=== PATIENT | male | born 1970 | race Caucasian/White ===

== ENCOUNTER 2019-04-11 04:05 | Observation (INO) ==
[2019-04-11] MEDS ORDERED: Ketorolac 15 MG/ML VIAL IVP ONE (04:45)
--- NOTE | 2019-04-11 04:51 | Emergency Department Note ---
Disposition Clinical Impression: Perineal abscess Disposition: Admitted As Inpatient Condition: Good Time of Disposition: 07:00 Male Urogenital HPI - General Chief complaint: ED Urogenital-Male Stated complaint: left testicle swelling Time Seen by Provider: 04/11/19 04:17 Source: patient Mode of arrival: private vehicle Limitations: no limitations Nursing Notes Reviewed: Yes Vital Signs Reviewed: Yes - History of Present Illness HPI Narrative: 48-year-old healthy male patient presents emergency department for evaluation of an abscess to the inguinal area. He states about a week ago he thought he had an infected hair, he attempted to pop it himself and drained and which is just turned into a large abscess. Patient is unsure if he is had fevers or not. He states he has felt hot and cold since about 1849 yesterday. No issues urinating, bowel movements. He states tenderness to the left inguinal area as well as bilateral testicles. They state there were at [facility] where they performed an ultrasound, gave 2 antibiotics, took blood and they wanted to transfer patient as they do not have urology services. Apparently, they tried to transfer patient to [facility], they did not want to go there in the room transfer to [place], patient did not want to go there as well and wanted to come here, at that point they left [facility] and drove to [place]. Patient states he ultrasound showed an abscess that was "going to need surgery", and is down into the left testicle coming over into the right testicle. Pt Subjective Complaint: testicle swelling (left) Onset (ago): day(s) Duration: constant Location: left testicle, left inguinal region Radiation: right testicle Severity: moderate, severe Severity scale (1-10): 8 Quality: other (Feels pressure, sharp) Improves with: none Worsens with: none other Reports: swelling, mass, fever (Unsure). Denies: discharge, rash, urinary retention, hematuria, dysuria, nausea/vomiting, incontinence - Related Data Sexually active: Yes Home Medications Medication Instructions Recorded Confirmed Acetaminophen [Tylenol] 1,000 mg PO DAILY PRN 04/11/19 04/11/19 Non-Formulary Medication 1 packet PO DAILY 04/11/19 04/11/19 Allergies Allergy/AdvReac Type Severity Reaction Status Date / Time aspirin Allergy "RED Verified 06/10/19 11:31 LIFTED HIVES, HEAD SWELLS" diphenhydramine Allergy Swelling Verified 04/11/19 11:31 [From Benadulil] of Lip/Tongue/Throat ibuprofen Allergy See Verified 04/11/19 11:31 Comments All systems ED: reviewed and negative except as stated. Review of Systems: As Per HPI Past Medical History - Past Medical History Attestation: Yes The following information was validated with the patient. Source: patient Medical history: Reports: no medical history Psychiatric history: Reports: no psych history - Social History Smoking Status: Current every day smoker Smokeless Tobacco Status: No Alcohol use: Reports: occasionally Drug use: Reports: none Physical Exam - General Limitations: no limitations General appearance: alert, in no apparent distress - Head Head exam: normal inspection - Eye Eye exam: Present: normal appearance - ENT ENT exam: mucous membranes moist - Male exam: Present: normal testicular lie, testicular tenderness (L>R), scrotal swelling (Left), other (left inguinal area with 2cmx 3cm indurated erythemic area without ulceration). Absent: circumcised, urethral discharge Scrotal exam: testicular tenderness: left, testicular swelling: left - Neurological Exam Neurological exam: Present: alert, oriented X3, normal gait - Psychiatric Psychiatric exam: Present: normal affect, normal mood - Skin Skin exam: Present: warm, dry, intact, normal color Course Course Narrative: Well-developed male distress. Respirations are easy and even. Patient is afebrile, non-tachycardic. Physical exam reveals an abscess to left renal area, there is ulceration, it is not draining. Examination was completed with frame opener in the room. Patient did sign a records release, we are currently attempting to get records from previous facility. Patient did have an ultrasound, he did receive antibiotics Vanc and Zosyn. Patient also had laboratory was there. We will initiate a saline lock and we will treat pain while pending records from previous facility. - Reevaluation(s) Reevaluation #1: Records received from [facility], ultrasound reveals there is some very cells and there is blood flow and bilateral testes however there is no mention of an abscess, fluid collection. Patient did receive the vancomycin and Zosyn. Labs from [facility] reveal a white blood cell count of 15.5, normal hemoglobin and hematocrit, metabolic panel was within normal limits with the exception of an elevated glucose at 298. UA without evidence of infection. Greater than 1000 glucose but no hematuria, leukocyte esterases, nitrites. The abscess does appear to be more in the inguinal area, we will obtain a CT to measure size. If it is not down into the testicle this will go through a general surgery, disposition continues to pend referral to test. Time: 06:25 Vital Signs Temperature 98.1 F 04/11/19 04:10 Pulse Rate 101 04/11/19 04:10 Respiratory Rate 16 04/11/19 04:10 Blood Pressure 174/98 04/11/19 04:10 O2 Sat by Pulse Oximetry 96 04/11/19 04:10 Temperature 97.5 F L 04/11/19 13:21 Pulse Rate 82 04/11/19 13:21 Respiratory Rate 15 04/11/19 13:21 Blood Pressure 121/73 04/11/19 13:21 O2 Sat by Pulse Oximetry 94 04/11/19 13:21 Oxygen Delivery Oxygen Delivery Room Air Urogenital-Male - Lab Data Result diagrams: 04/11/19 09:21 04/11/19 09:21 Lab Results 04/11/19 04/11/19 04/11/19 Range/Units 09:16 09:21 09:21 WBC 12.0 H (4.3-11.1) K/mcL RBC 4.82 (4.19-5.50) M/mcL Hgb 16.3 (12.9-16.9) g/dL Hct 45.9 (37.5-50.1) % MCV 95.2 (83.0-100.0) fL MCH 33.8 H (28.0-33.3) pg MCHC 35.5 (31.6-35.5) g/dL RDW 12.3 (11.5-14.5) % Plt Count 141 (140-400) K/mcL MPV 12.5 H (9.4-12.4) fL Immature Gran % 0.5 (0-4) % Seg Neutrophils % 60.7 % Lymphocytes % 27.3 % Monocytes % 7.7 % Eosinophils % 3.1 % Basophils % 0.7 % Neutrophils # 7.3 (1.6-8.9) K/mcL Lymphocytes # 3.3 (0.6-4.6) K/mcL Monocytes # 0.9 (0.0-1.3) K/mcL Eosinophils # 0.4 (0.0-0.6) K/mcL Basophils # 0.1 (0.0-0.2) K/mcL ESR 37 H (0-10) mm/hr PT (9.4-12.1) Seconds INR APTT (26.0-36.0) Seconds Sodium (136-145) mEq/L Potassium (3.5-5.1) mEq/L Chloride (98-107) mEq/L Carbon Dioxide (23-29) mEq/L BUN (6-20) mg/dL Creatinine (0.70-1.30) mg/dL Est GFR ( Amer) (> 60) Est GFR (Non-Af Amer) (> 60) BUN/Creatinine Ratio (6-26) Glucose (70-105) mg/dL Est Mean Plasma Glucose mg/dl Hemoglobin A1c ( - 5.6) % Calculated Osmolality (280-300) Calcium (8.6-10.3) mg/dL Magnesium (1.6-2.6) mg/dL C-Reactive Protein (Less than 10) mg/L Urine Color Yellow (Yellow) Urine Clarity Clear (Clear) Urine pH 6.0 (5.0-8.0) pH Units Ur Specific [place] 1.015 (1.010-1.025) Urine Protein Negative (Neg-Trace) mg/dL Urine Glucose (UA) 500 H (Normal) mg/dL Urine Ketones Negative (Negative) mg/dL Urine Blood Negative (Negative) Urine Nitrite Negative (Negative) Urine Bilirubin Negative (Negative) Urine Urobilinogen Normal (Normal) mg/dL Ur Leukocyte Esterase Negative (Negative) Ur Culture Indicated? NO (NO) 04/11/19 04/11/19 04/11/19 Range/Units 09:21 09:21 09:21 WBC (4.3-11.1) K/mcL RBC (4.19-5.50) M/mcL Hgb (12.9-16.9) g/dL Hct (37.5-50.1) % MCV (83.0-100.0) fL MCH (28.0-33.3) pg MCHC (31.6-35.5) g/dL RDW (11.5-14.5) % Plt Count (140-400) K/mcL MPV (9.4-12.4) fL Immature Gran % (0-4) % Seg Neutrophils % % Lymphocytes % % Monocytes % % Eosinophils % % Basophils % % Neutrophils # (1.6-8.9) K/mcL Lymphocytes # (0.6-4.6) K/mcL Monocytes # (0.0-1.3) K/mcL Eosinophils # (0.0-0.6) K/mcL Basophils # (0.0-0.2) K/mcL ESR (0-10) mm/hr PT 12.3 H (9.4-12.1) Seconds INR 1.1 APTT 34.9 (26.0-36.0) Seconds Sodium 135 L (136-145) mEq/L Potassium 4.0 (3.5-5.1) mEq/L Chloride 106 (98-107) mEq/L Carbon Dioxide 24 (23-29) mEq/L BUN 8 (6-20) mg/dL Creatinine 0.77 (0.70-1.30) mg/dL Est GFR ( Amer) > 60 (> 60) Est GFR (Non-Af Amer) > 60 (> 60) BUN/Creatinine Ratio 10 (6-26) Glucose 258 H (70-105) mg/dL Est Mean Plasma Glucose 272 mg/dl Hemoglobin A1c 11.1 H ( - 5.6) % Calculated Osmolality 287 (280-300) Calcium 8.9 (8.6-10.3) mg/dL Magnesium 2.0 (1.6-2.6) mg/dL C-Reactive Protein 33 H (Less than 10) mg/L Urine Color (Yellow) Urine Clarity (Clear) Urine pH (5.0-8.0) pH Units Ur Specific [place] (1.010-1.025) Urine Protein (Neg-Trace) mg/dL Urine Glucose (UA) (Normal) mg/dL Urine Ketones (Negative) mg/dL Urine Blood (Negative) Urine Nitrite (Negative) Urine Bilirubin (Negative) Urine Urobilinogen (Normal) mg/dL Ur Leukocyte Esterase (Negative) Ur Culture Indicated? (NO) S.B.A.R. - S.B.A.R. Situation: Demographics, MOA Background: Presenting Complaint, Relevant PMH, Meds, & Allergies Assessment: Vital Signs, Course and respsone to treatment, Exam Concerns, Patient/Family Expectation, Pertinant Lab Results, Outstanding Labs Recommendation: Barrier(s) to disposition, Recommendation based on pending studies, treatments, or consults S.B.A.R. Report Given to: Gabriel Lezama CNP SFlori.Armani Repor Time: 07:00
[2019-04-11] MEDS ORDERED: Nicotine 21 MG PATCH.TD24 TD ONE (05:27)
--- NOTE | 2019-04-11 06:21 | Emergency Department Note ---
Disposition Clinical Impression: Perineal abscess Disposition: Still a Patient Condition: Good Forms: ED Satisfaction Letter Time of Disposition: 06:22 General Adult HPI - General Chief complaint: ED Urogenital-Male Stated complaint: left testicle swelling Time Seen by Provider: 04/11/19 04:17 Source: patient Mode of arrival: private vehicle Limitations: no limitations Nursing Notes Reviewed: Yes Vital Signs Reviewed: Yes - History of Present Illness Pain Scale: 8 - Related Data Allergies Allergy/AdvReac Type Severity Reaction Status Date / Time aspirin Allergy Hives Verified 04/11/19 04:10 diphenhydramine Allergy Swelling Verified 04/11/19 04:10 [From Benadryl] of Lip/Tongue/Throat Past Medical History - Past Medical History Medical history: Reports: no medical history Psychiatric history: Reports: no psych history - Social History Smoking Status: Current every day smoker Smokeless Tobacco Status: No Alcohol use: Reports: occasionally Drug use: Reports: none Physical Exam - General Limitations: no limitations General appearance: alert, in no apparent distress Course Vital Signs Temperature 98.1 F 04/11/19 04:10 Pulse Rate 101 04/11/19 04:10 Respiratory Rate 16 04/11/19 04:10 Blood Pressure 174/98 04/11/19 04:10 O2 Sat by Pulse Oximetry 96 04/11/19 04:10 Temperature 98.1 F 04/11/19 04:10 Pulse Rate 101 04/11/19 04:10 Respiratory Rate 16 04/11/19 04:10 Blood Pressure 174/98 04/11/19 04:10 O2 Sat by Pulse Oximetry 96 04/11/19 04:10 Oxygen Delivery Oxygen Delivery Room Air Attestation Statement - Attestation Attestation: I, Paco Shah MD, personally evaluated this patient and discussed their management with the midlevel provicer, PAC/[employer]TER [employer] WRAPPER. I reviewed the midlevel provider's note and agree with the documented findings, medical decision making, and plan of care. 48-year-old male presents to the emergency department with a complaint of pain and swelling in the left testicle and scrotal area which started about one week prior to arrival. It has gotten progressively worse. He was seen earlier tonight at [facility] and had a workup including ultrasound. Patient reports they advised him that it needed to be drained and they did not have anyone there that would drain this. They wanted to transfer him to [place] but he did not want to go to [place] and would rather go to [place]. They did not want to transfer him to [place]. He states his cannot drive and he was concerned about how he can get home so they just left, apparently AMA and drove here. Patient denies having any fever. No difficulty urinating. Records obtained from [facility] and they did a scrotal ultrasound which showed small bilateral varicoceles. No mention of any abscess or fluid collection. Normal flow. He had lab work there which was unremarkable. On examination patient is a well-developed well-nourished male in no acute distress but does appear to be in moderate discomfort. He is alert and oriented 3. There is no cyanosis or diaphoresis. Breath sounds are clear and equal bilaterally. Heart regular rate and rhythm. Abdomen soft and nontender with normal bowel sounds. On exam patient has erythema and swelling and induration perineum just to the left side of the posterior aspect of the scrotum. This does not appear to involve the scrotum or testicles on examination. We will obtain a CT of the area and consult general surgery.
[2019-04-11] MEDS ORDERED: Isovue-370 500 ML BOTTLE IVP ONE (06:24)
--- NOTE | 2019-04-11 07:19 | Emergency Department Note ---
Disposition Clinical Impression: Perineal abscess Disposition: Admitted As Inpatient Condition: Good Referrals: NONE,PCP [Primary Care Provider] - Forms: ED Satisfaction Letter Time of Disposition: 09:29 General Adult HPI - General Chief complaint: ED Urogenital-Male Stated complaint: left testicle swelling Time Seen by Provider: 04/11/19 04:17 Source: patient Mode of arrival: private vehicle Limitations: no limitations - History of Present Illness Pain Scale: 8 - Related Data Home Medications Medication Instructions Recorded Confirmed No Known Home Drugs 04/11/19 04/11/19 Allergies Allergy/AdvReac Type Severity Reaction Status Date / Time aspirin Allergy Hives Verified 04/11/19 04:10 diphenhydramine Allergy Swelling Verified 04/11/19 04:10 [From Benadryl] of Lip/Tongue/Throat ibuprofen Allergy Rash Verified 04/11/19 06:14 Past Medical History - Past Medical History Medical history: Reports: no medical history Psychiatric history: Reports: no psych history - Social History Smoking Status: Current every day smoker Smokeless Tobacco Status: No Alcohol use: Reports: occasionally Drug use: Reports: none Physical Exam - General Limitations: no limitations General appearance: alert, in no apparent distress Course Course Narrative: 0700: I have assumed care of this patient from SUJEY Lora due to mid-level shift change. Please see Geno's documentation for care performed prior to my arrival. Briefly, this is an alert and oriented 48-year-old male that presented with a complaint of and swelling in the area of the left scrotum. Symptoms began one week prior. Symptoms have progressively worsened. He was seen at [facility] earlier yesterday and inferior workup included laboratory workup and ultrasound. They advised him that there is emesis in the drained did not have anyone there he felt comfortable performing this task. He was advised to transfer him to [place] that he did not want to go to [place]. He ask ed if transfer to [place] will be an option however states that he was told they do not want to transfer him to [place]. He ended up leaving AGAINST MEDICAL ADVICE and presented to this emergency department. He denies any fever or difficulty urinating. Scrotal ultrasound showed small bilateral varicoceles but no mention of any abscess or fluid collection. Normal Doppler color flow. At this time, CT pending. Disposition pending. 927: I spoke with perez Prado CNP with surgery. The patient will be admitted to the service of Dr. Bales. - Consultations Consultation #1: I spoke with Dr. Bales, general surgeon on-call. He has reviewed the patient's imaging and agrees that he believes that this is in the perineum, not involving the scrotum. He states that he will send one of his assistants to emergency department to evaluate the patient. Disposition pending. Time: 08:28 Vital Signs Temperature 98.1 F 04/11/19 04:10 Pulse Rate 101 04/11/19 04:10 Respiratory Rate 16 04/11/19 04:10 Blood Pressure 174/98 04/11/19 04:10 O2 Sat by Pulse Oximetry 96 04/11/19 04:10 Temperature 98.1 F 04/11/19 04:10 Pulse Rate 87 04/11/19 06:15 Respiratory Rate 16 04/11/19 06:15 Blood Pressure 119/72 04/11/19 06:15 O2 Sat by Pulse Oximetry 95 04/11/19 06:15 Oxygen Delivery Oxygen Delivery Room Air Medical Decision Making - Medical Records Medical records reviewed: Yes I reviewed the patient's medical records. - Lab Data Lab results reviewed: Yes I reviewed the patient's lab results. - Radiology Data Radiology results reviewed: Yes I reviewed the patient's radiology results. Abdomen/Pelvis CT 04/11/19 06:24 IMPRESSION: There is an ill-defined area of fluid in left hemiscrotum, measuring 3.4 cm x 1.9 cm., with surrounding injection of the fat, likely early abscess. No obvious soft tissue gas. Tiny nonobstructing right renal stone D/ / Justin Olsen MD / Justin Olsen MD Interpreting Provider: Justin Olsen MD
[2019-04-11] MEDS ORDERED: OXYCODONE Oral CONC 10 MG/0.5 ML ORAL.SYG SL PRN (09:14)
[2019-04-11] MEDS ORDERED: Ondansetron 4 MG/2 ML VIAL IVP PRN (09:14)
[2019-04-11] MEDS ORDERED: Ipratropium/Albuterol Neb 3 ML IH ONE (09:14)
[2019-04-11] MEDS ORDERED: *HR* Promethazine 25 MG/ML VIAL IVP PRN (09:14)
[2019-04-11] MEDS ORDERED: 0.9 % Sodium Chloride 1,000 ML IVC SCH ×2 (09:15→15:38)
--- NOTE | 2019-04-11 09:20 | Acute Care Surgery H&P ---
<JohanRashida Doc - Last Filed: 04/11/19 09:26> Date of Encounter: 04/11/19 Time of Encounter: 09:17 Assessment and Plan (1) Perineal abscess Current Visit: Yes Status: Acute The assessment and plan as outlined above was discussed with the patient and/or family members who expressed understanding and agreement. All questions were answered. Pt with left groin/perineal abscess. Amenable to bedside I&D. We will admit the patient and perform bedside I&D once he is on the floor. Will obtain cultures, labs, start ATBX (Zosyn). He reports he is "borderline diabetic." Will check HgA1c. Labs per ED are pending. Will review. Plan: I&D as above IV antibiotics supportive care and discomfort management G.I. and DVT prophylaxis repeat a.m. labs on 04/12/2019 (2) Smoking history Current Visit: Yes Status: Acute The assessment and plan as outlined above was discussed with the patient and/or family members who expressed understanding and agreement. All questions were answered. Smoking cessation strongly encouraged. Nicotine patch patient with tight and wheezing breath sounds. Will order Duoneb x1 IS History of Present Illness Chief complaint: left groin pain HPI: Mr. Cotter is a 48 year old male Past Med Surg Social Fam HX - Past Medical History Source: patient Medical history: no medical history Psychiatric history: no psych history - Past Surgical History Surgical History: no surgical history - Social History Smoking Status: Current every day smoker Packs per day: 1.5 ppd x24 years Smokeless Tobacco Status: No Alcohol use: occasionally Drug use: none Occupational status: employed ([employer] truck driver) Current living situation: Home - Independent Activity Level: Independent ambulation Recent Out of Country Travel Within the Last 8 Weeks: No Exposure or Possible Exposure to Illness During Travel: No Medications and Allergies Acetaminophen [Tylenol] 1,000 mg PO DAILY PRN 04/11/19 [History] Non-Formulary Medication 1 packet PO DAILY 04/11/19 [History] Allergy/AdvReac Type Severity Reaction Status Date / Time aspirin Allergy "RED Verified 04/11/19 11:31 LIFTED HIVES, HEAD SWELLS" diphenhydramine Allergy Swelling Verified 04/11/19 11:31 [From Benadryl] of Lip/Tongue/Throat ibuprofen Allergy See Verified 04/11/19 11:31 Comments Review of Systems All systems PM: reviewed and no additional remarkable complaints except as stated All systems PM: The remainder of the systems were reviewed and are negative General Surgery Exam Initial Vital Signs Temp Pulse Resp BP Pulse Ox 98.1 F 101 16 174/98 96 04/11/19 04:10 04/11/19 04:10 04/11/19 04:10 04/11/19 04:10 04/11/19 04:10 - General physical appearance no distress, moderate pain (only with movement or palpation of left groin area) - ENT poor care home (dental carries), atraumatic, normocephalic - Respiratory wheezing: bilateral (and decreased/tight) - Cardiovascular Cardiovascular exam: Present: RRR - Abdomen Abdomen general surgery: Present: bowel sounds present, soft (protuberant), non tender - Genitourinary Present: other (Left groin/perineal area is with aprox 4avi9ot area of induration and a small area of fluctuance at the superior most portion.) - Integumentary Integumentary general surgery: Present: warm and dry - Neurologic Present: normal coordination, normal sensation - Musculoskeletal Present: normal gait, normal posture - Psychiatric Psychiatric general surgery: Present: A&Ox3 Results - Labs All other labs normal. - Imaging CT scan - abdomen: report reviewed, image reviewed CT scan - pelvis: report reviewed, image reviewed <Abhinav Bales - Last Filed: 04/11/19 13:20> Date of Encounter: 04/11/19 History of Present Illness HPI: Mr. Cotter is a 48 year old male Past Med Surg Social Fam HX - Family History Father Hx Family Cardiac Disorders: No Hx Family Respiratory Disorders: Yes (Lung Cancer) Hx Family Cancer: Yes Hx Family GI Disorders: No Hx Family Genitourinary Disorders: No Hx Family Endocrine Disorder: Yes (DM) Hx Family Musculoskeletal Disorders: No Hx Family Neuromuscular Disorders: No Hx Family Neurologic Disorders: No Hx Family HEENT Disorders: No Hx Family Autoimmune Disorders: No Hx Family Reproductive Disorders: No Hx Family Psychosocial Disorders: No Hx Family Medical Disorders: No Review of Systems All systems PM: The remainder of the systems were reviewed and are negative General Surgery Exam Initial Vital Signs Temp Pulse Resp BP Pulse Ox 98.1 F 101 16 174/98 96 04/11/19 04:10 04/11/19 04:10 04/11/19 04:10 04/11/19 04:10 04/11/19 04:10 Results - Labs 04/11/19 09:21 04/11/19 09:21 Abnormal lab results WBC 12.0 K/mcL (4.3-11.1) H 04/11/19 09:21 MCH 33.8 pg (28.0-33.3) H 04/11/19 09:21 MPV 12.5 fL (9.4-12.4) H 04/11/19 09:21 ESR 37 mm/hr (0-10) H 04/11/19 09:21 PT 12.3 Seconds (9.4-12.1) H 04/11/19 09:21 Sodium 135 mEq/L (136-145) L 04/11/19 09:21 Glucose 258 mg/dL (70-105) H 04/11/19 09:21 11.1 % (-5.6) H 04/11/19 09:21 33 mg/L (Less than 10) H 04/11/19 09:21 500 mg/dL (Normal) H 04/11/19 09:16 Diabetes panel 04/11/19 04/11/19 Range/Units 09:21 09:21 Sodium 135 L (136-145) mEq/L Potassium 4.0 (3.5-5.1) mEq/L Chloride 106 (98-107) mEq/L Carbon Dioxide 24 (23-29) mEq/L BUN 8 (6-20) mg/dL Creatinine 0.77 (0.70-1.30) mg/dL Glucose 258 H (70-105) mg/dL Hemoglobin A1c 11.1 H ( - 5.6) % Calcium 8.9 (8.6-10.3) mg/dL Calcium panel 04/11/19 Range/Units 09:21 Calcium 8.9 (8.6-10.3) mg/dL Pituitary panel 04/11/19 Range/Units 09:21 Sodium 135 L (136-145) mEq/L Potassium 4.0 (3.5-5.1) mEq/L Chloride 106 (98-107) mEq/L Carbon Dioxide 24 (23-29) mEq/L BUN 8 (6-20) mg/dL Creatinine 0.77 (0.70-1.30) mg/dL Glucose 258 H (70-105) mg/dL Calcium 8.9 (8.6-10.3) mg/dL Adrenal panel 04/11/19 Range/Units 09:21 Sodium 135 L (136-145) mEq/L Potassium 4.0 (3.5-5.1) mEq/L Chloride 106 (98-107) mEq/L Carbon Dioxide 24 (23-29) mEq/L BUN 8 (6-20) mg/dL Creatinine 0.77 (0.70-1.30) mg/dL Glucose 258 H (70-105) mg/dL Calcium 8.9 (8.6-10.3) mg/dL All other labs normal. - Attending Attestation I have personally performed a face to face evaluation on this patient. I have reviewed and agree with the care plan. History and Exam by me shows: The patient is seen and evaluated with the clinical nurse practitioner. Patient has superficial abscess of the left inguinal crease. Unfortunately, he also has untreated diabetes. He will be admitted after incision and drainage for antibiotic therapy and initiation diabetes management Abhinav Bales MD FACS
[2019-04-11 09:48] LABS: Basophils # 0.1 K/mcL (0.0-0.2); Basophils % 0.7 %; Eosinophils # 0.4 K/mcL (0.0-0.6); Eosinophils % 3.1 %; Hematocrit 45.9 % (37.5-50.1); Hemoglobin 16.3 g/dL (12.9-16.9); Immature Granulocytes % 0.5 % (0-4); Lymphocytes # 3.3 K/mcL (0.6-4.6); Lymphocytes % 27.3 %; Mean Corpuscular HGB Conc 35.5 g/dL (31.6-35.5); Mean Corpuscular Hemoglobin 33.8 pg (28.0-33.3); Mean Corpuscular Volume 95.2 fL (83.0-100.0); Mean Platelet Volume 12.5 fL (9.4-12.4); Monocytes # 0.9 K/mcL (0.0-1.3); Monocytes % 7.7 %; Neutrophils # 7.3 K/mcL (1.6-8.9); Platelet Count 141 K/mcL (140-400); Red Blood Count 4.82 M/mcL (4.19-5.50); Red Cell Distribution Width 12.3 % (11.5-14.5); Segmented Neutrophils % 60.7 %
[2019-04-11 09:53] LABS: Bilirubin,Urine Negative (Negative); Blood,Urine Negative (Negative); Clarity,Urine Clear (Clear); Color,Urine Yellow (Yellow); Glucose,Urine (UA) 500 mg/dL (Normal); Ketones,Urine Negative (Negative); Leukocyte Esterase,Urine Negative (Negative); Nitrite,Urine Negative (Negative); Protein,Urine Negative (Neg-Trace); Specific Gravity,Urine 1.015 (1.010-1.025); Urobilinogen,Urine Normal (Normal)
[2019-04-11 09:55] LABS: INR 1.1; Prothrombin Time 12.3 Seconds (9.4-12.1)
[2019-04-11 09:57] LABS: Activated Partial Thrombo Time 34.9 Seconds (26.0-36.0)
[2019-04-11 10:06] LABS: BUN/Creatinine Ratio 10 (6-26); Blood Urea Nitrogen 8 mg/dL (6-20); C-Reactive Protein 33 mg/L (Less than 10); Calcium 8.9 mg/dL (8.6-10.3); Carbon Dioxide 24 mEq/L (23-29); Chloride 106 mEq/L (98-107); Estimated Average Glucose 272 mg/dl; Glucose 258 mg/dL (70-105); Hemoglobin A1C 11.1 %; Osmolality,Calculated 287 (280-300); Sodium 135 mEq/L (136-145); eGFR For African Americans > 60 (> 60); eGFR For Non-African Americans > 60 (> 60)
[2019-04-11] MEDS: Piperacillin/Tazobactam 3.375 GM in 0.9 % Sodium Chloride Mini Bag 100 ML IVPB SCH ×2 (10:07→16:06)
[2019-04-11] MEDS: Pantoprazole 40 MG VIAL IVP SCH (10:10)
[2019-04-11] MEDS ORDERED: Lidocaine 1% 20 ML MDV INFILT ONE (10:14)
[2019-04-11] MEDS ORDERED: *HR* OxyCODONE/APAP 5/325 TABLET PO PRN (11:08)
[2019-04-11] MEDS ORDERED: Ondansetron ODT 4 MG TAB.RAPDIS SL PRN (11:08)
[2019-04-11] MEDS ORDERED: Dextrose Gel 15 GM/37.5 ML TUBE PO PRN ×2 (11:43)
[2019-04-11] MEDS ORDERED: D5% in Water 1,000 ML IVC PRN (11:43)
[2019-04-11] MEDS ORDERED: *HR* Dextrose 50 % in Water (Syg) 50 ML SYRINGE IVP PRN (11:43)
--- NOTE | 2019-04-11 11:47 | Acute Care Surg Procedure Note ---
Date of procedure: 04/11/19 Procedure: ABSCESS INCISION AND DRAINAGE NOTE DATE OF PROCEDURE: 04/11/2019 Pre and Post procedure DIAGNOSIS: Abscess: Left inguinal INDICATION: Abscess manifested as a tender, swollen fluctuant mass in the superficial subcutaneous tissue of the left inguinal. INFORMED CONSENT: The risks and benefits of the procedure including incomplete drainage, scarring, infection and bleeding was explained and the patient verbalized their understanding and wished to proceed with the procedure. PROCEDURE: At the patient's bedside, the area of greatest fluctuance was identified, prepped, and draped in a sterile fashion. Local anesthetic (10 MLs of 2% lidocaine) was introduced subcutaneously over the area of greatest fluctu ance. A linear incision was then made over the area of greatest fluctuance, with immediate return of a large amount of purulent material. Aerobic and anaerobic cultures were obtained as well as Gram stain. The wound was explored with a hemostat to break up loculations and irrigated with 40MLs saline solution. Once the wound was explored, cleaned, and irrigated, 1/4 inch iodoform gauze packing was placed loosely in the wound. A dressing was then applied. FINDINGS: Purulent drainage. EBL: <5 mL COMPLICATIONS: None. Signature: Rashida Prado APRN, [employer]
[2019-04-11] MEDS: Insulin LISPRO 300 UNITS/3 ML VIAL SQ SCH ×2 (14:06→16:13)
[2019-04-11] MEDS: *HR* OxyCODONE/APAP 5/325 TABLET PO PRN ×2 (17:57→22:10)
--- NOTE | 2019-04-11 20:06 | Internal Medicine Consult Note ---
Date of Encounter: 04/11/19 Time of Encounter: 20:06 - Assessment and Plan (1) Newly diagnosed diabetes Current Visit: Yes Status: Acute Assessment and plan: Patient has been experiencing elevated glucose during this admission hemoglobin A1c was 11.1-glucose and urinalysis Patient states that he has no past history of diabetes and no family history diabetes he has been monitoring his glucose with his significant other's Accu-Chek machine has been running greater than 200. He said 3 weeks ago his glucose was 297. He stated he thought he could reduce his glucose by switching to diet soft drinks. He denies any polyuria un usual weight loss but does admit to polydipsia. 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 Continue with Accu-Cheks before meals at bedtime We will place on low-dose sliding scale insulin We will initiate on Levemir 10 units daily at bedtime and adjust as needed- patient likely place on oral medication Consult to dietitian for diabetic diet education-patient was eating fast food and drinking Diet Coke on assessment Nursing staff to provide diabetic education He will need primary care provider-endocrinology (2) Perineal abscess Current Visit: Yes Status: Acute Assessment and plan: I&D per surgery continue with current antibiotics surgery managing (3) Smoking history Current Visit: Yes Status: Acute Assessment and plan: Encouraged to stop smoking - Time Spent With Patient Total time spent is greater than 50% in coordination of care (as documented) at patient's floor/unit and/or counseling patient: Internal Medicine - CN: HPI - Data of Consult Patient: new to practice Consult date: 04/11/19 Requesting Physician: Abhinav Bales MD - Consult Narrative Reason for consult: Diabetes management History of present illness: Mr. Cotter is a 48 year old male with no past medical history who is a current smoker originally admitted by surgery services superficial abscess of left inguinal crease-which was I&D patient was initiated on IV antibiotics. He was noted to have elevated glucose A1c 11.1. Patient states that he has never been diagnosed with diabetes he does not have any family history of diabetes however this is vague he says his mother is prediabetic. He and his significant other state that they have been monitoring his blood glucose with her Accu-Chek machine 3 weeks ago he said his blood glucose was 297. He denies any symptoms of polyuria or unintentional weight loss but does confirm polydipsia. He has not been to a physician in a very long time he says he only goes to the doctor when he sick. He says that previously approximately 6 months ago his glucose was elevated- he stopped drinking regular toke and his glucose improved. When I asked him why his blood glucose was running at that time he cannot tell me that he states I think it was in the 90s. I informed the patient that he will be placed on insulin tonight and he will most likely go on insulin when he is discharged. 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 Had a long conversation concerning glucose control and the effects of uncontrolled diabetes including stroke and heart attack kidney disease vascular disease retinopathy and loss of vision. Patient did agree to undergo diabetic education and would take insulin why he was here however he still unsure if he is to take it at home. Also advised patient when the be established with primary care provider and requested to be separate a nurse practitioner in [facility] Past Med Surg Social Fam HX - Past Medical History Medical history: diabetes Psychiatric history: no psych history - Past Surgical History Surgical History: no surgical history - Social History Smoking Status: Current every day smoker Packs per day: 1.5 ppd x24 years Smokeless Tobacco Status: No Alcohol use: rarely Drug use: none - Family History Father Hx Family Cardiac Disorders: No Hx Family Respiratory Disorders: Yes (Lung Cancer) Hx Family Cancer: Yes Hx Family GI Disorders: No Hx Family Genitourinary Disorders: No Hx Family Endocrine Disorder: Yes (DM) Hx Family Musculoskeletal Disorders: No Hx Family Neuromuscular Disorders: No Hx Family Neurologic Disorders: No Hx Family HEENT Disorders: No Hx Family Autoimmune Disorders: No Hx Family Reproductive Disorders: No Hx Family Psychosocial Disorders: No Hx Family Medical Disorders: No - EENT Eyes: as per HPI Ears: as per HPI Nose, mouth and throat: as per HPI - Respiratory Respiratory: as per HPI - Gastrointestinal Gastrointestinal: as per HPI - Musculoskeletal Musculoskeletal ROS IM: as per HPI - Integumentary Integumentary IM: new lesions, non-healing lesions - Endocrine Endocrine IM: polydipsia Internal Medicine - CN: Meds Acetaminophen [Tylenol] 1,000 mg PO DAILY PRN 04/11/19 [History] Non-Formulary Medication 1 packet PO DAILY 04/11/19 [History] Allergy/AdvReac Type Severity Reaction Status Date / Time aspirin Allergy "RED Verified 04/11/19 11:31 LIFTED HIVES, HEAD SWELLS" diphenhydramine Allergy Swelling Verified 04/11/19 11:31 [From Benadryl] of Lip/Tongue/Throat ibuprofen Allergy See Verified 04/11/19 11:31 Comments Hospitalist - CN: Exam - Constitutional Vitals: Temp Pulse Resp BP Pulse Ox 98.2 F 76 15 122/71 96 04/11/19 19:43 04/11/19 19:43 04/11/19 19:43 04/11/19 19:43 04/11/19 19:43 Exam: Skin: Free of rash and discoloration.-Dressing to left inguinal Eyes: Sclera is white. There is no discharge from eyes. ENMT: Oral/pharyngeal mucosa is normal in appearance. There is no discharge from nose or ears. Respiratory: Normal breath sounds with no crackles and wheezes bilaterally. CV: Heart is regular with no gallop or murmur. GI: Abdomen is flat and soft with no palpable mass or visceromegaly. : There is no tenderness in patient's flanks bilaterally. Neuro exam: He has good strength in upper and lower extremities. He has normal eye movements. Psychiatric: He has normal affect. His thought process is appropriate to the situation. Internal Medicine - CN: Reslt - Labs CBC & Chem 7: 04/11/19 09:21 04/11/19 09:21 Labs: Short CBC 04/11/19 Range/Units 09:21 WBC 12.0 H (4.3-11.1) K/mcL Hgb 16.3 (12.9-16.9) g/dL Hct 45.9 (37.5-50.1) % Plt Count 141 (140-400) K/mcL Neutrophils # 7.3 (1.6-8.9) K/mcL BMP 04/11/19 09:21 Sodium 135 L Potassium 4.0 Chloride 106 Carbon Dioxide 24 BUN 8 Creatinine 0.77 Glucose 258 H Calcium 8.9 Urine 04/11/19 Range/Units 09:16 Urine Color Yellow (Yellow) Urine Clarity Clear (Clear) Urine pH 6.0 (5.0-8.0) pH Units Ur Specific [place] 1.015 (1.010-1.025) Urine Protein Negative (Neg-Trace) mg/dL Urine Glucose (UA) 500 H (Normal) mg/dL - ABG Interpretation ABG results: PT/INR, D-dimer PT 12.3 Seconds (9.4-12.1) H 04/11/19 09:21 - Impressions Impressions Abdomen/Pelvis CT 04/11/19 06:24 IMPRESSION: There is an ill-defined area of fluid in left hemiscrotum, measuring 3.4 cm x 1.9 cm., with surrounding injection of the fat, likely early abscess. No obvious soft tissue gas. Tiny nonobstructing right renal stone D/ / Justin Olsen MD / Justin Olsen MD Interpreting Provider: Justin Olsen MD Consult Discharge Plan - Plan Referrals: NONE,PCP [Primary Care Provider] -
[2019-04-11] MEDS ORDERED: Insulin LISPRO 300 UNITS/3 ML VIAL SQ SCH ×2 (21:00)
[2019-04-11] MEDS ORDERED: Insulin DETEMIR 100 UNIT/ML X5UNITS SQ SCH (21:00)
[2019-04-12] MEDS: Piperacillin/Tazobactam 3.375 GM in 0.9 % Sodium Chloride Mini Bag 100 ML IVPB SCH ×2 (00:02→09:48)
[2019-04-12] MEDS: *HR* OxyCODONE/APAP 5/325 TABLET PO PRN ×2 (02:59→12:44)
[2019-04-12 07:25] LABS: Basophils # 0.1 K/mcL (0.0-0.2); Basophils % 0.9 %; Eosinophils # 0.4 K/mcL (0.0-0.6); Eosinophils % 4.2 %; Hematocrit 44.2 % (37.5-50.1); Hemoglobin 15.3 g/dL (12.9-16.9); Immature Granulocytes % 0.1 % (0-4); Lymphocytes # 3.8 K/mcL (0.6-4.6); Lymphocytes % 43.1 %; Mean Corpuscular HGB Conc 34.6 g/dL (31.6-35.5); Mean Corpuscular Hemoglobin 34.2 pg (28.0-33.3); Mean Corpuscular Volume 98.9 fL (83.0-100.0); Mean Platelet Volume 12.3 fL (9.4-12.4); Monocytes # 0.7 K/mcL (0.0-1.3); Monocytes % 7.6 %; Neutrophils # 3.9 K/mcL (1.6-8.9); Platelet Count 132 K/mcL (140-400); Red Blood Count 4.47 M/mcL (4.19-5.50); Red Cell Distribution Width 12.3 % (11.5-14.5); Segmented Neutrophils % 44.1 %; White Blood Count 8.9 K/mcL (4.3-11.1)
[2019-04-12 07:48] LABS: BUN/Creatinine Ratio 10 (6-26); Blood Urea Nitrogen 8 mg/dL (6-20); Calcium 8.7 mg/dL (8.6-10.3); Carbon Dioxide 25 mEq/L (23-29); Chloride 107 mEq/L (98-107); Cholesterol 109 mg/dL (< 200); Glucose 234 mg/dL (70-105); HDL Cholesterol 22 mg/dL (40-59); LDL Cholesterol,Calculated 60 mg/dL (0-99); Osmolality,Calculated 290 (280-300); Potassium 4.1 mEq/L (3.5-5.1); Sodium 137 mEq/L (136-145); Triglycerides 133 mg/dL (< 150); eGFR For African Americans > 60 (> 60); eGFR For Non-African Americans > 60 (> 60)
[2019-04-12] MEDS ORDERED: Nicotine 21 MG PATCH.TD24 TD SCH (09:00)
[2019-04-12] MEDS ORDERED: Insulin DETEMIR 100 UNIT/ML X5UNITS SQ SCH (09:00)
[2019-04-12] MEDS: Pantoprazole 40 MG VIAL IVP SCH (09:50)
[2019-04-12] MEDS: Insulin LISPRO 300 UNITS/3 ML VIAL SQ SCH ×2 (09:57→12:18)
--- NOTE | 2019-04-12 11:36 | Discharge Summary ---
<Galileo Whalen Y - Last Filed: 04/12/19 12:00> Orders not resulted at time of discharge: Pending orders 04/11/19 11:52 Culture,Anaerobic [RM] Stat Culture,Wound [RM] Stat Date of Encounter: 04/12/19 General Surgery Exam Initial Vital Signs Temp Pulse Resp BP Pulse Ox 98.1 F 101 16 174/98 96 04/11/19 04:10 04/11/19 04:10 04/11/19 04:10 04/11/19 04:10 04/11/19 04:10 - Hospital Course Hospital course: Mr. Cotter is a 48 year old male - Time Spent with Patient Total time spent providing and/or coordinating discharge services: - Discharge Medications Prescriptions: New Swab [Cotton Swabs] 1 each MC DAILY 30 Days #30 swab Iodoform [Curity Iodoform] 1 each TP DAILY 30 Days #1 bottle Gauze Bandage [Gauze Pad] 2 each TP AD 30 Days #60 bandage Adhesive Tape [Paper Tape] 1 each TP AD 30 Days #1 tape GlipiZIDE [Glipizide Xl] 5 mg PO DAILY 30 Days #30 tab.er.24 metFORMIN [Glucophage] 500 mg PO BIDWM 30 Days #60 tablet Clindamycin [Cleocin] 300 mg PO Q6HR 12 Days #48 capsule Continued Non-Formulary Medication 1 packet PO DAILY Acetaminophen [Tylenol] 1,000 mg PO DAILY PRN PRN Reason: HEADACHE/PAIN Home Medications: Acetaminophen [Tylenol] 1,000 mg PO DAILY PRN 04/11/19 [History] Non-Formulary Medication 1 packet PO DAILY 04/11/19 [History] Adhesive Tape [Paper Tape] 1 each TP AD 30 Days #1 tape 04/12/19 [Rx] Clindamycin [Cleocin] 300 mg PO Q6HR 12 Days #48 capsule 04/12/19 [Rx] Gauze Bandage [Gauze Pad] 2 each TP AD 30 Days #60 bandage 04/12/19 [Rx] GlipiZIDE [Glipizide Xl] 5 mg PO DAILY 30 Days #30 tab.er.24 04/12/19 [Rx] Iodoform [Curity Iodoform] 1 each TP DAILY 30 Days #1 bottle 04/12/19 [Rx] Swab [Cotton Swabs] 1 each MC DAILY 30 Days #30 swab 04/12/19 [Rx] metFORMIN [Glucophage] 500 mg PO BIDWM 30 Days #60 tablet 04/12/19 [Rx] Allergies/Adverse Reactions: Allergy/AdvReac Type Severity Reaction Status Date / Time aspirin Allergy "RED Verified 04/11/19 11:31 LIFTED HIVES, HEAD SWELLS" diphenhydramine Allergy Swelling Verified 04/11/19 11:31 [From Benadryl] of Lip/Tongue/Throat ibuprofen Allergy See Verified 04/11/19 11:31 Comments Date of admission: 04/11/19 12:07 Primary care physician: PCP NONE Consults: 04/11/19 11:44 Consult to Hospitalist [CONS] Stat Consulting Provider: Hospitalist Fang Reason for Consult: New diagnosis of diabetes, inpatient management and outpatient recommendations Time Notified: 11:44 Call Completed: Yes 04/11/19 12:59 Consult to Registered Route Associate [CONS] Routine Reason for SW Consult: Pt does not have insurance, would like to discuss resources to help with payment. 04/12/19 09:08 Consult to Registered Route Associate [CONS] Stat Reason for SW Consult: HHC for wound packing 04/12/19 09:09 Consult to Nutrition [CONS] Stat Comment: diabetic diet (new diagnosis) Consulting Provider: NUTRITION Reason for Dietary Consult: Diet Education Labs on day of discharge: Labs from last 24 hours 04/12/19 04/12/19 04/11/19 06:47 06:47 21:00 WBC 8.9 RBC 4.47 Hgb 15.3 Hct 44.2 MCV 98.9 MCH 34.2 H MCHC 34.6 RDW 12.3 Plt Count 132 L MPV 12.3 Immature Gran % 0.1 Seg Neutrophils % 44.1 Lymphocytes % 43.1 Monocytes % 7.6 Eosinophils % 4.2 Basophils % 0.9 Neutrophils # 3.9 Lymphocytes # 3.8 Monocytes # 0.7 Eosinophils # 0.4 Basophils # 0.1 Sodium 137 Potassium 4.1 Chloride 107 Carbon Dioxide 25 BUN 8 Creatinine 0.77 Est GFR ( Amer) > 60 Est GFR (Non-Af Amer) > 60 BUN/Creatinine Ratio 10 Glucose 234 H POC Glucose 284 H Calculated Osmolality 290 Calcium 8.7 Triglycerides 133 Cholesterol 109 LDL Cholesterol, Calc 60 VLDL Cholesterol, Calc 27 HDL Cholesterol 22 L Cholesterol/HDL Ratio 5.0 H 04/11/19 16:10 WBC RBC Hgb Hct MCV MCH MCHC RDW Plt Count MPV Immature Gran % Seg Neutrophils % Lymphocytes % Monocytes % Eosinophils % Basophils % Neutrophils # Lymphocytes # Monocytes # Eosinophils # Basophils # Sodium Potassium Chloride Carbon Dioxide BUN Creatinine Est GFR ( Amer) Est GFR (Non-Af Amer) BUN/Creatinine Ratio Glucose POC Glucose 277 H Calculated Osmolality Calcium Triglycerides Cholesterol LDL Cholesterol, Calc VLDL Cholesterol, Calc HDL Cholesterol Cholesterol/HDL Ratio Preliminary micro results at discharge 04/11/19 11:52 Anaerobic Culture - Preliminary Aspirate Culture is incubating. 04/11/19 11:52 Wound Culture - Preliminary Abscess Culture is incubating. - Impressions ITS Impressions Abdomen/Pelvis CT 04/11/19 06:24 IMPRESSION: There is an ill-defined area of fluid in left hemiscrotum, measuring 3.4 cm x 1.9 cm., with surrounding injection of the fat, likely early abscess. No obvious soft tissue gas. 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 Thank you) Christopher Fox DO [Resident] - 04/15/19 2:30 pm Rashida Prado CNP [Advanced Practice Nurse] - 04/19/19 4:00 pm Forms: Inpatient Work/School Release Additional Instructions: Daily wound care: remove dressing and packing. Wash with antibacterial soap. Repack with 1/4 inch iodoform gauze. Cover with a dry dressing. Tape to secure. Take your antibiotics as directed. Do not stop your antibiotics without talking to your provider. <Ángela Villa - Last Filed: 04/12/19 12:55> - NOTES TO OUTPATIENT PROVIDER Notes to Outpatient Provider: Status post I&D of left groin/perennial abscess, daily dressing changes, home health has been consulted. Will complete 12 more days clindamycin for total of 14 days antibiotic coverage, cultures remain pending. Patient to follow-up with general surgery in 1 week. New diagnosis of diabetes mellitus, hemoglobin A1c 11. Medications include metformin, glipizide. Patient to follow-up with PCP for further management of diabetes. Orders not resulted at time of discharge: Pending orders 04/11/19 11:52 Culture,Anaerobic [RM] Stat Culture,Wound [RM] Stat Date of Encounter: 04/12/19 Time of Encounter: 11:35 - Discharge Diagnosis (1) Perineal abscess Priority: Primary Status: Acute (2) Newly diagnosed diabetes Priority: Secondary Status: Acute General Surgery Exam Initial Vital Signs Temp Pulse Resp BP Pulse Ox 98.1 F 101 16 174/98 96 04/11/19 04:10 04/11/19 04:10 04/11/19 04:10 04/11/19 04:10 04/11/19 04:10 - General physical appearance well developed, well nourished, no distress - Eyes PERRL, normal ocular movement - ENT normal mucosa, no congestion - Neck trachea midline, no lymphadectomy - Respiratory normal expansion, normal respiratory effort, clear to percussion, clear to auscultation - Cardiovascular Cardiovascular exam: Present: RRR, no murmurs/rubs/gallops. Absent: JVD - Abdomen Abdomen general surgery: Present: bowel sounds present, soft, non tender - Incision Incision: Present: clean and dry, serous - Genitourinary Present: testicles present, testicles non-tender - Integumentary Integumentary general surgery: Present: warm and dry, no abnormal pigmentation - Neurologic Present: CN 2-12 grossly intact, normal coordination, normal sensation - Musculoskeletal Present: normal posture - Psychiatric Psychiatric general surgery: Present: appropriate, oriented to person, oriented to place, oriented to time, speech is normal, memory intact - Hospital Course Hospital course: Mr. Cotter is a 48 year old male who presented to emergency department with complaint of left groin/perineal abscess present for the past week. Patient was afebrile, leukocytosis at 12.0. CT abdomen and pelvis performed which revealed an ill-defined area of fluid in the left hemiscrotum measuring 3.4 cm x 1.9 cm, no obvious soft tissue gas. Surgery was consults the and a bedside I&D was performed. Loculations were broken up, the abscess was irrigated, and packed with iodoform gauze packing and dressed. Patient states that he was a borderline diabetic in the past, hemoglobin A1c was drawn and found to be elevated at 11.1. Hospitalist service was consulted for management of new diagnosis of diabetes. As patient is asymptomatic, he will be discharged on metformin, glipizide with follow-up with PCP for further management. Patient's leukocytosis improved after drainage of abscess as well as antibiotic coverage with vancomycin and Zosyn. Vital signs are stable and patient well to discharged to home with home health referral for wound care and packing. Follow-up has been arranged with surgical service in one week. Patient to follow-up with PCP as well. - Time Spent with Patient Total time spent providing and/or coordinating discharge services: Date of admission: 04/11/19 12:07 Primary care physician: PCP NONE Consults: 04/11/19 11:44 Consult to Hospitalist [CONS] Stat Consulting Provider: Hospitalist Fang Reason for Consult: New diagnosis of diabetes, inpatient management and outpatient recommendations Time Notified: 11:44 Call Completed: Yes 04/11/19 12:59 Consult to Registered Route Associate [CONS] Routine Reason for SW Consult: Pt does not have insurance, would like to discuss resources to help with payment. 04/12/19 09:08 Consult to Registered Route Associate [CONS] Stat Reason for SW Consult: C for wound packing 04/12/19 09:09 Consult to Nutrition [CONS] Stat Comment: diabetic diet (new diagnosis) Consulting Provider: NUTRITION Reason for Dietary Consult: Diet Education Discharging clinician: Ángela Villa Anticipated date of discharge: 04/12/19 Labs on day of discharge: Labs from last 24 hours 04/12/19 04/12/19 04/11/19 06:47 06:47 21:00 WBC 8.9 RBC 4.47 Hgb 15.3 Hct 44.2 MCV 98.9 MCH 34.2 H MCHC 34.6 RDW 12.3 Plt Count 132 L MPV 12.3 Immature Gran % 0.1 Seg Neutrophils % 44.1 Lymphocytes % 43.1 Monocytes % 7.6 Eosinophils % 4.2 Basophils % 0.9 Neutrophils # 3.9 Lymphocytes # 3.8 Monocytes # 0.7 Eosinophils # 0.4 Basophils # 0.1 Sodium 137 Potassium 4.1 Chloride 107 Carbon Dioxide 25 BUN 8 Creatinine 0.77 Est GFR ( Amer) > 60 Est GFR (Non-Af Amer) > 60 BUN/Creatinine Ratio 10 Glucose 234 H POC Glucose 284 H Calculated Osmolality 290 Calcium 8.7 Triglycerides 133 Cholesterol 109 LDL Cholesterol, Calc 60 VLDL Cholesterol, Calc 27 HDL Cholesterol 22 L Cholesterol/HDL Ratio 5.0 H 04/11/19 16:10 WBC RBC Hgb Hct MCV MCH MCHC RDW Plt Count MPV Immature Gran % Seg Neutrophils % Lymphocytes % Monocytes % Eosinophils % Basophils % Neutrophils # Lymphocytes # Monocytes # Eosinophils # Basophils # Sodium Potassium Chloride Carbon Dioxide BUN Creatinine Est GFR ( Amer) Est GFR (Non-Af Amer) BUN/Creatinine Ratio Glucose POC Glucose 277 H Calculated Osmolality Calcium Triglycerides Cholesterol LDL Cholesterol, Calc VLDL Cholesterol, Calc HDL Cholesterol Cholesterol/HDL Ratio Preliminary micro results at discharge 04/11/19 11:52 Anaerobic Culture - Preliminary Aspirate Culture is incubating. 04/11/19 11:52 Wound Culture - Preliminary Abscess Culture is incubating. - Impressions ITS Impressions Abdomen/Pelvis CT 04/11/19 06:24 IMPRESSION: There is an ill-defined area of fluid in left hemiscrotum, measuring 3.4 cm x 1.9 cm., with surrounding injection of the fat, likely early abscess. No obvious soft tissue gas. Tiny nonobstructing right renal stone D/ / Justin Olsen MD / Justin Olsen MD Interpreting Provider: Justin Olsen MD - Patient Status Functional capacity at discharge: independent ambulation Overall status at discharge: patient is progressing back to baseline - Diet and Activity Activity: increase activity as tolerated Diet: advance to your usual diet, diabetic diet <Amairani,Abhinav T - Last Filed: 04/12/19 13:45> Orders not resulted at time of discharge: Pending orders 04/11/19 11:52 Culture,Anaerobic [RM] Stat Culture,Wound [RM] Stat 04/13/19 02:00 Vancomycin,Trough Timed Date of Encounter: 04/12/19 General Surgery Exam Initial Vital Signs Temp Pulse Resp BP Pulse Ox 98.1 F 101 16 174/98 96 04/11/19 04:10 04/11/19 04:10 04/11/19 04:10 04/11/19 04:10 04/11/19 04:10 - Hospital Course Hospital course: Mr. Cotter is a 48 year old male - Time Spent with Patient Total time spent providing and/or coordinating discharge services: Date of admission: 04/11/19 12:07 Primary care physician: PCP NONE Consults: 04/11/19 11:44 Consult to Hospitalist [CONS] Stat Consulting Provider: Hospitalist Fang Reason for Consult: New diagnosis of diabetes, inpatient management and outpatient recommendations Time Notified: 11:44 Call Completed: Yes 04/11/19 12:59 Consult to Registered Route Associate [CONS] Routine Reason for SW Consult: Pt does not have insurance, would like to discuss resources to help with payment. 04/12/19 09:08 Consult to Registered Route Associate [CONS] Stat Reason for SW Consult: HHC for wound packing 04/12/19 09:09 Consult to Nutrition [CONS] Stat Comment: diabetic diet (new diagnosis) Consulting Provider: NUTRITION Reason for Dietary Consult: Diet Education Labs on day of discharge: Labs from last 24 hours 04/12/19 04/12/19 04/11/19 06:47 06:47 21:00 WBC 8.9 RBC 4.47 Hgb 15.3 Hct 44.2 MCV 98.9 MCH 34.2 H MCHC 34.6 RDW 12.3 Plt Count 132 L MPV 12.3 Immature Gran % 0.1 Seg Neutrophils % 44.1 Lymphocytes % 43.1 Monocytes % 7.6 Eosinophils % 4.2 Basophils % 0.9 Neutrophils # 3.9 Lymphocytes # 3.8 Monocytes # 0.7 Eosinophils # 0.4 Basophils # 0.1 Sodium 137 Potassium 4.1 Chloride 107 Carbon Dioxide 25 BUN 8 Creatinine 0.77 Est GFR ( Amer) > 60 Est GFR (Non-Af Amer) > 60 BUN/Creatinine Ratio 10 Glucose 234 H POC Glucose 284 H Calculated Osmolality 290 Calcium 8.7 Triglycerides 133 Cholesterol 109 LDL Cholesterol, Calc 60 VLDL Cholesterol, Calc 27 HDL Cholesterol 22 L Cholesterol/HDL Ratio 5.0 H 04/11/19 16:10 WBC RBC Hgb Hct MCV MCH MCHC RDW Plt Count MPV Immature Gran % Seg Neutrophils % Lymphocytes % Monocytes % Eosinophils % Basophils % Neutrophils # Lymphocytes # Monocytes # Eosinophils # Basophils # Sodium Potassium Chloride Carbon Dioxide BUN Creatinine Est GFR ( Amer) Est GFR (Non-Af Amer) BUN/Creatinine Ratio Glucose POC Glucose 277 H Calculated Osmolality Calcium Triglycerides Cholesterol LDL Cholesterol, Calc VLDL Cholesterol, Calc HDL Cholesterol Cholesterol/HDL Ratio Preliminary micro results at discharge 04/11/19 11:52 Anaerobic Culture - Preliminary Aspirate Culture is incubating. 04/11/19 11:52 Wound Culture - Preliminary Abscess Gram Positive Cocci - Impressions ITS Impressions Abdomen/Pelvis CT 04/11/19 06:24 IMPRESSION: There is an ill-defined area of fluid in left hemiscrotum, measuring 3.4 cm x 1.9 cm., with surrounding injection of the fat, likely early abscess. No obvious soft tissue gas. Tiny nonobstructing right renal stone D/ / Justin Olsen MD / Justin Olsen MD Interpreting Provider: Justin Olsen MD - Attending Attestation I examined this patient and my medical decision-making was reviewed with the Resident Physician. I agree with the documented findings, disposition and treatment plan as described except to the extent set forth below. The patient is seen and evaluated on morning rounds with the acute care surgery team in the resident. The patient has had excellent pain relief and is ready for discharge. Follow-up acute care surgery clinic in 2 weeks. Continue packing during that period of time Abhinav Bales MD FACS
[2019-04-12 11:48] VITALS: BP 147/76
[2019-04-12] MEDS ORDERED: Insulin LISPRO 300 UNITS/3 ML VIAL SQ SCH (12:00)
--- NOTE | 2019-04-12 12:04 | Internal Med Progress Note ---
Hospitalist Progress Note - Encounter Date of Encounter: 04/12/19 Time of Encounter: 12:01 - Subjective Interval History: I have seen and evaluated the patient at bedside. Patient reports the swelling and tenderness around his groin area has resolved. he denies chest pain, shortness of breath, nausea or vomiting. denies diarrhea or abdominal pain. - Exam Vitals: Temp Pulse Resp BP Pulse Ox 97.4 F L 85 14 147/76 96 04/12/19 11:45 04/12/19 11:45 04/12/19 11:45 04/12/19 11:45 04/12/19 11:45 Exam: Vitals: Reviewed General: Alert and oriented x4. In no distress Skin: Normal color, no rash, no lesions. HEENT: EOM, pupils equal, round and reactive. Cardiovascular: RRR, normal S1 & S2, no rubs, murmurs or gallops. Lungs: CTA b/l, no wheezes or crackles. Abdomen: Obese, soft, non-tender, no rigidity. Extremities: No edema Neurological: Normal cognition and motor skills. Rest of the physical exam is non contributory - Assessment and Plan (1) Newly diagnosed diabetes Current Visit: Yes Status: Acute Assessment and Plan: patient with A1C of 11% asymptomatic. discussed with the patient about starting insulin for outpatient diabetes management, but due to work reasons he stated that he cannot be on insulin. He is a truck service manager. patient to be discharged on two oral hypoglycemic agents. glipizide and metformin. recommended to follow up with his pcp as outpatient. (2) Perineal abscess Current Visit: Yes Status: Acute Assessment and Plan: s/p I&D. would culture: pending final report. patient on broad spectrum IV antibiotics (3) Smoking history Current Visit: Yes Status: Acute DVT Prophylaxis: encourage early mobilization. - Summary of Assessment and Plan Summary of Assessment and Plan: Disposition: per primary team. - Time Spent with Patient Total time spent is greater than 50% in coordination of care (as documented) at patient's floor/unit and/or counseling patient: Greater than 35 minutes (40) Plan of Care Discussed with: patient (and the nurse.) Internal Medicine: Result - Labs CBC & Chem 7: 04/12/19 06:47 04/12/19 06:47 Labs: Short CBC 04/12/19 Range/Units 06:47 WBC 8.9 (4.3-11.1) K/mcL Hgb 15.3 (12.9-16.9) g/dL Hct 44.2 (37.5-50.1) % Plt Count 132 L (140-400) K/mcL Neutrophils # 3.9 (1.6-8.9) K/mcL BMP 04/12/19 06:47 Sodium 137 Potassium 4.1 Chloride 107 Carbon Dioxide 25 BUN 8 Creatinine 0.77 Glucose 234 H Calcium 8.7 - ABG Interpretation ABG results: PT/INR, D-dimer PT 12.3 Seconds (9.4-12.1) H 04/11/19 09:21 Consult Discharge Plan - Plan Instructions: How to Stop Smoking (DC), Cigarette Smoking and Your Health (GEN), Diabetes Mellitus Type 2 in Adults (DC), Meal Planning with Diabetes Exchanges (GEN), Abscess (GEN) Additional Instructions: Daily wound care: remove dressing and packing. Wash with antibacterial soap. Repack with 1/4 inch iodoform gauze. Cover with a dry dressing. Tape to secure. Take your antibiotics as directed. Do not stop your antibiotics without talking to your provider. Referrals: [facility] [place] [Provider Group] (in two weeks for New diagnosis of diabetes Primary office will need to make the referral for the manager distribution appointment. Thank you) Christopher Fox DO [Resident] - 04/15/19 2:30 pm Rashida Prado CNP [Advanced Practice Nurse] - 04/19/19 4:00 pm Prescriptions: Swab [Cotton Swabs] 1 each MC DAILY 30 Days #30 swab Iodoform [Curity Iodoform] 1 each TP DAILY 30 Days #1 bottle Gauze Bandage [Gauze Pad] 2 each TP AD 30 Days #60 bandage GlipiZIDE [Glipizide Xl] 5 mg PO DAILY 30 Days #30 tab.er.24 metFORMIN [Glucophage] 500 mg PO BIDWM 30 Days #60 tablet Adhesive Tape [Paper Tape] 1 each TP AD 30 Days #1 tape
--- NOTE | 2019-04-12 13:29 | Physician Discharge Referral ---
Home Health/Hosp Referral Info Transfer to: Home Health Provider in Charge Post Discharge: PCP - Diagnosis (1) Perineal abscess Priority: Primary Status: Acute (2) Newly diagnosed diabetes Priority: Secondary Status: Acute - Respiratory Orders Smoking Cessation: Smoking cessation has been advised. For more information, call the [place] Tobacco Quit Line at 2-604-UUDN-NOW. - Dressing/Wound Care Site: Left groin, perineal abscess Type of Dressing/Treatments w/Frequency: Daily wound care: remove dressing and packing. Wash with antibacterial soap. Repack with 1/4 inch iodoform gauze. Cover with a dry dressing. Tape to secure. - Activity Activity Orders: Ambulate - Services Needed Following services are medically necessary services: Nursing, Home Health Aide - Transfer Medications Prescriptions: Clindamycin [Cleocin] 300 mg PO Q6HR 12 Days #48 capsule Swab [Cotton Swabs] 1 each MC DAILY 30 Days #30 swab Iodoform [Curity Iodoform] 1 each TP DAILY 30 Days #1 bottle Gauze Bandage [Gauze Pad] 2 each TP AD 30 Days #60 bandage GlipiZIDE [Glipizide Xl] 5 mg PO DAILY 30 Days #30 tab.er.24 metFORMIN [Glucophage] 500 mg PO BIDWM 30 Days #60 tablet Adhesive Tape [Paper Tape] 1 each TP AD 30 Days #1 tape Home Medications: Acetaminophen [Tylenol] 1,000 mg PO DAILY PRN 04/11/19 [History] Non-Formulary Medication 1 packet PO DAILY 04/11/19 [History] Adhesive Tape [Paper Tape] 1 each TP AD 30 Days #1 tape 04/12/19 [Rx] Clindamycin [Cleocin] 300 mg PO Q6HR 12 Days #48 capsule 04/12/19 [Rx] Gauze Bandage [Gauze Pad] 2 each TP AD 30 Days #60 bandage 04/12/19 [Rx] GlipiZIDE [Glipizide Xl] 5 mg PO DAILY 30 Days #30 tab.er.24 04/12/19 [Rx] Iodoform [Curity Iodoform] 1 each TP DAILY 30 Days #1 bottle 04/12/19 [Rx] Swab [Cotton Swabs] 1 each MC DAILY 30 Days #30 swab 04/12/19 [Rx] metFORMIN [Glucophage] 500 mg PO BIDWM 30 Days #60 tablet 04/12/19 [Rx] Allergies/Adverse Reactions: Allergy/AdvReac Type Severity Reaction Status Date / Time aspirin Allergy "RED Verified 04/11/19 11:31 LIFTED HIVES, HEAD SWELLS" diphenhydramine Allergy Swelling Verified 04/11/19 11:31 [From Benadryl] of Lip/Tongue/Throat ibuprofen Allergy See Verified 04/11/19 11:31 Comments Certification: Further, I certify that my clinical findings support that this patient is homebound (i.e. absences from home require considerable and taxing effort and are for medical reasons or yarsanism services or infrequently or short duration when for other reasons) because: Homebound Reason: Patient requires assistance of a person or device to safely leave home Attestation: My signature below is to certify that this patient is under my care and that I, or nurse practitioner, or a physician's assistant mechanic working with me, has a [id number] encounter with this patient.
== END 2019-04-12 16:15 | disposition home or self-care (01) ==
LOC: EMEROOARM 04:05 → 3ANU 04:05 → SUATTDRO 12:07 → 3ANU 12:19
PROVIDERS: ADMIT Surgery; ATTEND Internal Medicine